=== PATIENT | female | born 1965 | race African-American/Black ===

== ENCOUNTER 2017-04-11 02:39 | Inpatient (IN) ==
[2017-04-11 03:18] LABS: Basophils % 0.4 % (0.0-0.8); Eosinophils # 0.1 10*3/uL (0.0-0.87); Eosinophils % 0.5 % (0.00-10.9); Hematocrit 42.8 VOL% (35.7-47.0); Hemoglobin 14.7 GM/DL (12.0-16.0); Immature Granulocytes % 0.6 %; Immature Granulocytes Absolute 0.06 #; Lymphocytes # 3.1 10*3/uL (1.4-4.0); Lymphocytes % 29.5 % (21.3-54.2); Mean Corpuscular HGB Conc 34.3 GM/DL (32-36); Mean Corpuscular Hemoglobin 28 PG (27-34); Mean Corpuscular Volume 80.9 FL (87-102); Mean Platelet Volume 10.6 FL (9.6-12.0); Monocytes # 0.9 10*3/uL (0.11-0.8); Monocytes % 8.7 % (1.7-12.7); Neutrophils # 6.3 10*3/uL (1.4-7.4); Neutrophils % 60.3 % (38.7-73.9); Platelet Count 207 T/CUMM (130-400); Red Blood Count 5.29 MC/CUMM (3.8-5.5); Red Cell Distribution Width 13.7 % (9.3-17.3); White Blood Count 10.4 T/CUMM (4-12)
[2017-04-11] MEDS ORDERED: LACTATED RINGERS 1,000 ML IV ONE (03:18)
[2017-04-11] MEDS ORDERED: HYDROmorphone 2 MG/1 ML VIAL IV STA (03:18)
[2017-04-11] MEDS ORDERED: PANTOPRAZOLE 40 MG VIAL IV ONE ×2 (03:18→03:38)
[2017-04-11] MEDS ORDERED: HYDROmorphone 2 MG/1 ML VIAL ONE (03:38)
[2017-04-11] MEDS ORDERED: SUCRALFATE 1 GM/10 ML UDCUP PO ONE (03:42)
[2017-04-11 03:48] LABS: Albumin 4.1 G/DL (3.4-5.0); Bilirubin,Total 0.4 MG/DL (0.2-1.0); Calcium 9.8 MG/DL (8.5-10.1); Osmolality,Calculated 276.5 MOS/KG (273-304); Potassium 3.6 MMOL/L (3.5-5.1); Total Protein 7.9 G/DL (6.4-8.3)
[2017-04-11 03:54] LABS: PT Patient Result 10.2 SECS; Partial Thromboplastin Time < 21.0 SECS (0-40)
[2017-04-11] MEDS ORDERED: CIPROFLOXACIN INJ 400 MG in PREMIX 1 EACH IV STA (04:07)
[2017-04-11] MEDS ORDERED: metroNIDAZOLE INJ 500 MG in PREMIX 1 EACH IV STA (04:07)
--- NOTE | 2017-04-11 04:09 | Emergency Department Note ---
John Paul Cavazos Brittany, am scribing for, and in the presence of, Mariano Ortez MD 03 :04. Neelima Cavazos Hans, MD, personally performed the services described in this documentation, ascribed by Jennifer Coker in my presence, and it is both accurate and complete . Arrival - Arrival Chief Complaint: Abdominal / Flank Pain Stated Complaint: abd pain ED Nursing Triage Note: abdominal tenderness left side, nausea, vomitting Mode of Arrival: Stretcher Limitations: No Limitations Source: Patient, RN Notes Reviewed - History of Present Illness HPI Narrative: Patient is a 51 y/o female presenting to the ED by EMS with c/o left sided abdominal pain which onset tonight. Patient states that she was wakened out of her sleep with this pain. Patient notes having associated N/V, but denies any dysuria or hematuria. She reports a history of similar episode about a year ago which required hospitalization and was determined that she had a gastric ulcer. Denies any recent use of NSAIDS. She has had a hysterectomy. Current everyday cigarette smoker and occasional user of EtOH. Patient has no other complaint/ pain. Allergies/Adverse Reactions: Allergies Allergy/AdvReac Type Severity Reaction Status Date / Time No Known Allergies Allergy Verified 02/22/17 21:12 Home Medications: Home Medications Medication Instructions Recorded Confirmed Type Atenolol [Tenormin] 50 mg PO BID #60 tablet 04/02/16 02/22/17 Rx Ranitidine Tab [Zantac Tab] 150 mg PO BID #30 tablet 04/04/16 02/22/17 Rx Polyethylene Glycol Powder 17 gm PO DAILY #12 pack 02/22/17 Rx [Miralax] Tizanidine HCl [Zanaflex] 2 mg PO Q6H #40 capsule 02/22/17 Rx predniSONE TAB [PredniSONE] 20 mg PO DAILY #15 tablet 02/22/17 Rx Review of System - Review of System 12 point system: reviewed and no additional remarkable complaints except as stated - Review of System Constitutional: Absent: chills, fever Eyes: Absent: vision change Head/Ears/Nose/Throat: Absent: nasal drainage, sore throat Respiratory: Absent: respiratory distress Cardiovascular: Absent: chest pain Gastrointestinal: Present: abdominal pain, nausea, vomiting Genitourinary female: Absent: dysuria, frequency, urgency Musculoskeletal: Absent: arm pain, back pain, leg pain, neck pain Skin: Absent: rash Neurological: Absent: headache Psychiatric: Absent: anxiety, depression Medical,Surgical,& Family Hx - Medical History Cardio: History of: Hypertension Neurology: No history of: Seizures Gastrointestinal: History of: GERD, GI Problems (ulcers) Musculoskeletal: History of: Back/Neck Problems - Surgical History Reproductive Surgeries: Surgical HX of;: Hysterectomy - Family History Family History: Reports;: Family Heart Disease - Social History Smoking Status: Current every day smoker Frequency of Alcohol Use: Frequently Type of Drug Use: Marijuana Exam Vital Signs: Vital Signs Temperature 97.9 F 04/11/17 02:40 Pulse Rate 110 H 04/11/17 02:40 Respiratory Rate 18 04/11/17 02:40 Blood Pressure 135/98 04/11/17 02:40 O2 Sat by Pulse Oximetry 99 04/11/17 03:54 - General General appearance: alert, in distress (appears uncomfortable secondary to pain , in position) - Head Head exam: Present: atraumatic, normocephalic, normal inspection - Eye Eye exam: Present: normal appearance, PERRL, EOMI - ENT ENT exam: Present: normal exam, normal oropharynx - Neck Neck exam: Present: normal inspection, full ROM, trachea midline - Chest Chest inspection: Present: normal inspection, symmetric chest wall rise - Respiratory Respiratory exam: Present: normal lung sounds bilaterally - Cardiovascular Cardiovascular exam: Present: regular rate, normal rhythm, normal heart sounds - Abdominal Exam Abdominal exam: Present: soft, tenderness (diffuse abdominal tenderness), hypoactive bowel sounds. Absent: guarding, rebound, normal bowel sounds - Extremities Exam Extremities exam: Present: normal inspection - Back Exam Back exam: Present: normal inspection - Neurological Exam Neurological exam: Present: alert, oriented X3, CN II-XII intact. Absent: motor sensory deficit - Psychiatric Psychiatric exam: Present: normal affect, normal mood - Skin Skin exam: Present: warm, dry Course Course Narrative: This patient was evaluated in the ER with lab work and CT scan of the abdomen and pelvis. She had evidence of thickening in the antrum of her stomach and has a known history of peptic ulcer disease. She also has pancolitis to her sigmoid colon from the transverse colon. She is not having diarrhea but because of her history of peptic ulcer disease and also her findings of colitis and thickening of the stomach as well as the degree of her abdominal pain I have recommended inpatient treatment with IV Protonix and antibiotics for colitis until this can be further evaluated. I discussed this with the hospitalist on-call who agreed to come and see her for admission. Results - Labs CBC & BMP: 04/11/17 03:04 04/11/17 03:04 Lab Results: I have reviewed the patients labs Labs: Laboratory Tests 04/11/17 03:04 WBC 10.4 RBC 5.29 Hgb 14.7 Hct 42.8 MCV 80.9 L Plt Count 207 [place] # (Auto) 0.9 H Laboratory Tests 04/11/17 04/11/17 03:04 03:31 INR 1.0 PT Patient/Control Mix 10.2 Circ Anticoag PTT < 21.0 Sodium 139 Potassium 3.6 Chloride 100 Carbon Dioxide 28 BUN 13 Creatinine 0.60 BUN/Creatinine Ratio 21.00 H Glucose 98 Globulin 3.8 H Albumin/Globulin Ratio 1.0 L Disposition Clinical Impression: Colitis, Peptic ulcer disease Case discussed with: patient Disposition: Still a Patient Condition: Stable Time of Disposition: 04:09
[2017-04-11] MEDS ORDERED: CIPROFLOXACIN 400 MG/200 ML PREMIX IV ONE (04:15)
--- NOTE | 2017-04-11 05:10 | Hospitalist History & Physical ---
Assessment and Plan (1) Colitis Status: Acute Current Visit: Yes (2) Peptic ulcer disease Status: Acute Current Visit: Yes (3) Abdominal pain Status: Acute Current Visit: No (4) Tobacco abuse Status: Acute Assessment and plan: Our plan for this patient will be admitting her to our service. Need to follow up on the official CT scan report. Will consult GI for their evaluation. Put her on IV antibiotics. Start on clear liquid diet and advance her diet is needed. Continue home meds as appropriate. Current Visit: No History of Present Illness Chief complaint: Abdominal pain History of present illness: Ms. Vargas is a 51 year old female with history of peptic ulcer disease and hypertension who is in normal state of health until tonight. Patient woke up at 1 AM with some significant abdominal pain. Patient reports that his only left lower quadrant and seems to wrap around her lower abdomen. It was really sharp. She has not had any bowel movements with this pain but she has had some significant vomiting. Patient had a CT scan performed in the emergency room patient was found to have some bowel wall thickening consistent with colitis. I was consulted to admit her through the emergency room. Home Medications Medication Instructions Recorded Confirmed Type Atenolol [Tenormin] 50 mg PO BID #60 tablet 04/02/16 02/22/17 Rx Ranitidine Tab [Zantac Tab] 150 mg PO BID #30 tablet 04/04/16 02/22/17 Rx Polyethylene Glycol Powder 17 gm PO DAILY #12 pack 02/22/17 Rx [Miralax] Tizanidine HCl [Zanaflex] 2 mg PO Q6H #40 capsule 02/22/17 Rx predniSONE TAB [PredniSONE] 20 mg PO DAILY #15 tablet 02/22/17 Rx Allergies Allergy/AdvReac Type Severity Reaction Status Date / Time No Known Allergies Allergy Verified 02/22/17 21:12 Medical,Surgical,& Family Hx - Medical History Cardio: History of: Hypertension Neurology: No history of: Seizures Gastrointestinal: History of: GERD, GI Problems (ulcers) Musculoskeletal: History of: Back/Neck Problems - Surgical History Reproductive Surgeries: Surgical HX of;: Hysterectomy - Family History Family History: Reports;: Family Heart Disease - Social History Smoking Status: Current every day smoker Frequency of Alcohol Use: Frequently Type of Drug Use: Marijuana 12 point system: reviewed and no additional remarkable complaints except as stated Exam - Constitutional Vitals: Period Temp Pulse Resp BP Sys/Arambula Pulse Ox Last 24 Hr 97.8 F-97.9 F 109-110 16-18 135-135/98-98 97-99 General appearance: under weight - Head Head exam: Present: normal inspection - Eye Eye exam: Present: EOMI Pupils: Present: BARBARA - ENT ENT exam: Present: normal exam - Neck Neck exam: Present: normal inspection - Respiratory Respiratory exam: Present: clear to auscultation bilaterally - Cardiovascular Cardiovascular exam: Present: tachycardia - GI/Abdominal GI/Abdominal exam: Present: hypoactive bowel sounds, tenderness (Left lower quadrant). Absent: rebound - Extremities Exam Extremities exam: Present: normal inspection - Back Exam Back exam: Present: normal inspection Results - Labs CBC & BMP: 04/11/17 03:04 04/11/17 03:04
[2017-04-11] MEDS ORDERED: PNEUMOCOCCAL VACCINE (13 VALENT) 0.5 ML SYRINGE IM ONE (06:24)
[2017-04-11 06:39] LABS: Apearance,Urine CLEAR (Clear); Bacteria,Urine Occasional /HPF (Few); Bilirubin,Urine Negative (Negative); Blood, Urine Negative (Negative); Glucose,Urine (UA) Negative (Negative); Ketones,Urine Negative (Negative); Mucus,Urine Occasional /LPF (Occasional); Nitrite,Urine Negative (Negative); Protein,Urine Negative; RBC,Urine 1 /HPF (0-4); Squamous Epithelial Cell,Urine Occasional /HPF (0-10); Urine Color Yellow (Yellow); Urine Specific Gravity 1.032 (1.001-1.035); Urine Urobilinogen < 2.0 EU/DL (0.2-1.0); WBC,Urine 2 /HPF (0-6)
[2017-04-11 06:49] LABS: Barbiturates Screen,Urine Positive (Negative); Benzodiazepines Screen,Urine Negative (Negative); Cannabinoid Screen,Urine Positive (Negative); Opiate Screen,Urine Positive (Negative); Phencyclidine Screen,Urine Negative (Negative)
--- NOTE | 2017-04-11 07:08 | CT Report ---
CT abdomen pelvis w con Indication: Generalized abdominal pain Comparison: CT chest abdomen pelvis dated March 31, 2016 Technique: Multiple axial tomographic images of the abdomen and pelvis were obtained after the administration of 100 cc Omnipaque 350 intravenous contrast. Findings: Mild dependent change of the lungs present. No worrisome focal hepatic abnormality. The gallbladder is grossly unremarkable. The pancreas is grossly unremarkable. The spleen is grossly unremarkable. The bilateral adrenal glands are grossly unremarkable. Subcentimeter hypodensity noted within the right kidney which is too small to characterize but may reflect a cyst. No evidence of hydronephrosis. The urinary bladder is incompletely distended. Status post hysterectomy. There is no evidence of gastrointestinal obstruction or acute appendicitis. Appendix not visualized with certainty. Colonic diverticula are present. Moderate fecal material noted throughout the colon which could reflect constipation. There is wall thickening involving the transverse, descending, and upper sigmoid colon suspicious for colitis. There is wall thickening of the distal stomach suggested which may reflect gastritis or incomplete distention. Mild atherosclerotic calcifications demonstrated. Visualized osseous and surrounding soft tissue structures appear grossly unchanged. There is some hyperdensity noted within the bilateral femoral heads suspicious for sequela of osteonecrosis. IMPRESSION: Colonic diverticula are present. Moderate fecal material noted throughout the colon which could reflect constipation. There is wall thickening involving the transverse, descending, and upper sigmoid colon suspicious for colitis. There is wall thickening of the distal stomach suggested which may reflect gastritis or incomplete distention. Status post hysterectomy and other detailed findings as above. The CT exam was performed using one or more of the following dose reduction techniques: Automated exposure control, adjustment of the mA and/or kV according to patient size, or use of iterative reconstruction technique. PROCEDURE INTERPRETED AT [facility] DEPARTMENT OF RADIOLOGY Final Report Signed by: Dr Alban Coronado
[2017-04-11] MEDS: HYDROmorphone 2 MG/1 ML VIAL IV PRN ×4 (08:24→20:31)
[2017-04-11] MEDS: ONDANSETRON 4 MG/2 ML VIAL IV PRN ×4 (08:25→22:19)
[2017-04-11] MEDS: PANTOPRAZOLE 40 MG VIAL IV SCH ×2 (08:26→20:33)
[2017-04-11] MEDS: ATENOLOL 50 MG TABLET PO SCH ×2 (08:26→21:45)
[2017-04-11] MEDS ORDERED: LACTULOSE 20 GM/30 ML UDCUP PO PRN (08:42)
[2017-04-11] MEDS ORDERED: DOCUSATE SODIUM 100 MG CAPSULE PO PRN (08:43)
[2017-04-11] MEDS: NICOTINE 21 MG/24 HR PATCH TRANSDERM SCH (11:28)
[2017-04-11] MEDS: metroNIDAZOLE INJ 500 MG in PREMIX 1 EACH IV SCH ×2 (13:45→20:31)
[2017-04-11] MEDS: CIPROFLOXACIN INJ 400 MG in PREMIX 1 EACH IV SCH (17:50)
--- NOTE | 2017-04-11 19:24 | Gastrointestinal Consult Note ---
Assessment and Plan (1) Generalized abdominal pain Status: Acute Assessment and plan: Patient is CT scan that she seems to show some sort of colitis. She had previously undergone colonoscopy by Dr. Ledesma back in 2010 but now has some blood in her stool. Her hematocrit is 42.8% and she states that she is off of her Naprosyn now. She may certainly has some stress-induced gastritis that is making her stools guaiac positive. There may be another process going on the colon that is new since previous colonoscopy done by Dr. Ledesma in 2010. The CT scan demonstrates a colitis but not true diverticulitis which would be more localized and associated with a higher white count, I believe. She has been started on Cipro and Flagyl, we will continue to watch her on these medications particularly her white count over time and see if her pain and proves in tandem with lowering of this white blood cell count. Patient is not using any cocaine and some not particularly concerned about ischemic colitis. This is likely an infectious colitis or perhaps rectal bleeding associated with her constipation which she does have a baseline. Good to stop the laxatives and go ahead and put her on some MiraLAX 1 capful 3 times daily which should improve her bowel movements along with her clear liquid diet. Current Visit: Yes (2) Abnormal CT scan Status: Acute Assessment and plan: This refers to the colitis seen on CT scanning. We will continue to watch the patient's white blood cell count is her antibiotics treat a potential infection. Current Visit: Yes (3) History of gastric ulcer Status: Acute Assessment and plan: This patient does have a history of esophagitis gastritis and duodenitis with the gastritis also notable for gastric ulcers due to Naprosyn use previously. She is discontinue the Naprosyn but is taking Lortab on a routine basis and is also on a H2 RA instead of a proton pump inhibitor (ranitidine instead of Protonix). Agree with placing her Protonix while she is here in the hospital. We will try and avoid NSAIDs while in the house. Again the patient has a stable hematocrit at this time. Current Visit: Yes (4) Polypharmacy Status: Acute Assessment and plan: Patient's urine drug screen shows not just the opiates as one might expect from Lortab but also barbiturates alcohol and cannabis. 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 Is hard to tell how much of her constipation with one bowel movement every 2 weeks is secondary to chronic narcotic use. Current Visit: Yes History of Present Illness Chief complaint: LLQ pain > generalized abdominal pain, possible colitis History of present illness: Ms. Vargas is a 51 year old female who is well-known to me from her previous admission in March 2016 when the patient had epigastric pain dysphasia and abnormal weight loss and was taking Naprosyn and developed a set of gastric ulcers as well as having LA class a erosive esophagitis and erosive duodenitis treated with pantoprazole. Patient states that since that time she has discontinued Naprosyn and has come off the Protonix given to her to help heal these ulcers and is instead taking ranitidine possibly as a result of seeing her primary doctor Dr. Veronica Vega. She is been having some issues with constipation but does take some Lortab on a routine basis. She states that this morning about 1 AM she was struck with a very severe abdominal pain which was very cramping and elected to go to the bathroom where she had a near syncopal episode due to the pain. She states that she does drink a can of beer per day this helps her to "use it" she does not know whether or not she has passed any recent black stools as she does not look at the stools when she defecates. I do not see that she has had any recent colonoscopies done at this institution however mild records indicate the patient had both EGD and colonoscopy by Dr. Ledesma back in 2010. There is no family history of colorectal cancer polyps the patient knows of. Her current urine drug screen demonstrates positivity for opiates, barbiturates, cannabis, as well as having serum alcohol level 30. The patient has one bowel movement every 2 weeks at times forcing her to take enemas on occasional basis. Please see my previous consultation from 03/31/16 for full details. Home Medications Medication Instructions Recorded Confirmed Type Atenolol [Tenormin] 50 mg PO BID #60 tablet 04/02/16 04/11/17 Rx Ranitidine Tab [Zantac Tab] 150 mg PO BID #30 tablet 04/04/16 04/11/17 Rx Allergies Allergy/AdvReac Type Severity Reaction Status Date / Time No Known Allergies Allergy Verified 02/22/17 21:12 Medical,Surgical,& Family Hx - Medical History Cardio: History of: Hypertension Neurology: No history of: Seizures Genitourinary: History of: Kidney Stones Gastrointestinal: History of: GERD, Hemorrhoids, GI Problems (ulcers) Musculoskeletal: History of: Back/Neck Problems - Surgical History Thoracic Surgeries: Surgical HX of;: Lithotripsy Patient denies;: Organ Transplant Abdominal Surgeries: Surgical HX of: Colonoscopy, EGD, Hernia Repair Reproductive Surgeries: Surgical HX of;: Hysterectomy - Family History Family History: Reports;: Family Heart Disease, Family Hypertension, Additional Family History (lupus) - Social History Smoking Status: Current every day smoker Frequency of Alcohol Use: Frequently Type of Drug Use: Marijuana Review of systems: Constitutional: Denies fever, chills, mild nausea, but no vomiting Eyes: Denies dry eyes, and scleral icterus HENT: Denies headaches Cardiovascular: Denies acute chest pain and claudication Respiratory: Denies shortness of breath, wheezing, and difficulty breathing, denies cough Gastrointestinal: As noted in the HPI Genitourinary: Patient does have some mild dysuria and occasional hematuria Neurologic: Denies vision loss, and loss of sensation Musculoskeletal: Denies joint swelling, joint stiffness, and muscular weakness Psychiatric: This patient does complain of anxiety, depression but no annika symptoms Heme-Lymph: Denies easy bruising, lymph node enlargement or tenderness, night sweats, excessive bleeding Allergies-immunologic: Denies pruritus and rhinorrhea Exam - Constitutional Vitals: Period Temp Pulse Resp BP Sys/Arambula Pulse Ox Last 24 Hr 97.2 F-98.2 F 71-111 16-20 116-172/75-110 96-100 Exam: Constitutional: Well-developed, well-nourished, alert, and in no acute distress Head and face: Head: Normocephalic atraumatic Eyes: Conjunctiva without injection, no gross scleral icterus, pupils equal and round bilaterally Ears: Intact to conversation in both ears Nose: External appearance is normal, nares patent Mouth: Oral mucous membranes moist without erythema dentition noted to be without erosion Neck: Normal appearance, no masses or tenderness, trachea midline Thyroid: Gland midline and appropriate size for age Respiratory: Normal respiratory effort, clear to auscultation without wheezes, rhonchi or rales Cardiovascular: Regular rate and rhythm, normal S1, S2, the exam is without rubs, murmurs or gallops. Gastrointestinal: Moderate tenderness to palpation everywhere but this seems worse in the left lower abdomen normal active bowel sounds, tone normal without rigidity or guarding, no masses present, no hepatomegaly, no spleen tip felt. Stool is brown but grossly guaiac positive. Lymphatic: Neck without adenopathy, axilla without lymphadenopathy present Musculoskeletal: Right and left lower extremities without evidence of edema Skin and subcutaneous tissue: No rashes or ulcerations noted, normal skin turgor, digits and nails without clubbing/cyanosis/deformities. Neurologic: The patient is grossly oriented to person place and time, cranial nerves show tongue movements are normal with normal tongue extrusion midline, light touch sensation is intact. Psychiatric: No hallucinations or delusions are present, does not appear depressed Results - Labs CBC & BMP: 04/11/17 03:04 04/11/17 03:04 Quality Measures - Stroke Symptom Onset Unknown: No
[2017-04-11] MEDS: POLYETHYLENE GLYCOL POWDER 17 GM PACK PO SCH (20:31)
[2017-04-11] MEDS ORDERED: DOCUSATE SODIUM 100 MG CAPSULE PO SCH (21:00)
[2017-04-11] MEDS ORDERED: LACTULOSE 20 GM/30 ML UDCUP PO SCH (21:00)
[2017-04-12] MEDS: HYDROmorphone 2 MG/1 ML VIAL IV PRN ×4 (02:48→20:41)
[2017-04-12 05:03] LABS: Basophils % 0.3 % (0.0-0.8); Eosinophils % 0.3 % (0.00-10.9); Hematocrit 35.7 VOL% (35.7-47.0); Immature Granulocytes % 0.6 %; Immature Granulocytes Absolute 0.04 #; Lymphocytes # 2.2 10*3/uL (1.4-4.0); Lymphocytes % 33.7 % (21.3-54.2); Mean Corpuscular HGB Conc 33.6 GM/DL (32-36); Mean Corpuscular Hemoglobin 28 PG (27-34); Mean Corpuscular Volume 82.8 FL (87-102); Mean Platelet Volume 11.8 FL (9.6-12.0); Monocytes # 0.9 10*3/uL (0.11-0.8); Monocytes % 13.4 % (1.7-12.7); Neutrophils # 3.3 10*3/uL (1.4-7.4); Neutrophils % 51.7 % (38.7-73.9); Platelet Count 190 T/CUMM (130-400); Red Blood Count 4.31 MC/CUMM (3.8-5.5); Red Cell Distribution Width 13.6 % (9.3-17.3); White Blood Count 6.4 T/CUMM (4-12)
[2017-04-12 05:21] LABS: Calcium 9.1 MG/DL (8.5-10.1); Osmolality,Calculated 274.5 MOS/KG (273-304)
[2017-04-12] MEDS: metroNIDAZOLE INJ 500 MG in PREMIX 1 EACH IV SCH ×3 (05:40→20:18)
[2017-04-12] MEDS: CIPROFLOXACIN INJ 400 MG in PREMIX 1 EACH IV SCH ×2 (06:24→17:29)
[2017-04-12] MEDS: NICOTINE 21 MG/24 HR PATCH TRANSDERM SCH (08:36)
[2017-04-12] MEDS: POLYETHYLENE GLYCOL POWDER 17 GM PACK PO SCH ×3 (08:36→20:21)
[2017-04-12] MEDS: ATENOLOL 50 MG TABLET PO SCH ×2 (08:36→20:21)
[2017-04-12] MEDS: ONDANSETRON 4 MG/2 ML VIAL IV PRN ×2 (08:42→20:22)
[2017-04-12] MEDS: PANTOPRAZOLE 40 MG VIAL IV SCH ×2 (08:45→20:20)
[2017-04-12] MEDS ORDERED: ONDANSETRON 4 MG/2 ML VIAL ONE (09:00)
[2017-04-12] MEDS ORDERED: PROPOFOL 200 MG/20 ML VIAL IV ONE (09:00)
--- NOTE | 2017-04-12 12:15 | Hospitalist Progress Note ---
Assessment and Plan (1) Generalized abdominal pain Status: Acute Assessment and plan: CT scan demonstrates a colitis but not true diverticulitis. Plan continue with IVF, IV Flagyl and Cipro Current Visit: Yes (2) Colitis Status: Acute Assessment and plan: Continue with IV antibiotics, follow BC Current Visit: Yes (3) History of gastric ulcer Status: Acute Assessment and plan: Continue with PPIs and GI's recommendations Current Visit: Yes (4) Hypertension Status: Acute Assessment and plan: stable on meds Current Visit: No (5) Polypharmacy Status: Acute Assessment and plan: patient has been counseled Current Visit: Yes (6) Constipation Status: Acute Assessment and plan: Patient is on Miralax Current Visit: Yes Hospitalist: Subjective Interval history: Patient seen. She moved her bowel yesterday. Her diet has been advanced. She feels better. Exam - Constitutional Vitals: Period Temp Pulse Resp BP Sys/Arambula Pulse Ox Last 24 Hr 96.0 F-98.2 F 71-94 18-22 114-133/63-84 96-98 General appearance: no acute distress - Head Head exam: Present: normal inspection - Respiratory Respiratory exam: Present: clear to auscultation bilaterally - Cardiovascular Cardiovascular exam: Present: regular rate and rhythm - GI/Abdominal GI/Abdominal exam: Present: normal bowel sounds - Extremities Exam Extremities exam: Present: normal inspection - Neurological Exam Neurological exam: Present: alert, oriented X3 Results - Labs CBC & BMP: 04/12/17 03:46 04/12/17 03:46 Lab Results: I have reviewed the past 24 hour labs Quality Measures - Stroke Symptom Onset Unknown: No
--- NOTE | 2017-04-12 15:35 | Gastrointestinal Progress Note ---
Assessment and Plan (1) Generalized abdominal pain Status: Acute Assessment and plan: Patient is CT scan that she seems to show some sort of colitis. She had previously undergone colonoscopy by Dr. Ledesma back in 2010 but now has some blood in her stool. Her hematocrit is 42.8% and she states that she is off of her Naprosyn now. She may certainly has some stress-induced gastritis that is making her stools guaiac positive. There may be another process going on the colon that is new since previous colonoscopy done by Dr. Ledesma in 2010. The CT scan demonstrates a colitis but not true diverticulitis which would be more localized and associated with a higher white count, I believe. She has been started on Cipro and Flagyl, we will continue to watch her on these medications particularly her white count over time and see if her pain and proves in tandem with lowering of this white blood cell count. Patient is not using any cocaine and some not particularly concerned about ischemic colitis. This is likely an infectious colitis or perhaps rectal bleeding associated with her constipation which she does have a baseline. Good to stop the laxatives and go ahead and put her on some MiraLAX 1 capful 3 times daily which should improve her bowel movements along with her clear liquid diet. 04/12/17--patient's primary refractory worker Dr. Ledesma mentions that he thinks this patient has got severe constipation related IBS but CT scan here seems to show colitis, will plan on doing colonoscopy again in order to check and see if there is an infectious process and to completely rule out malignancy. The patient will be getting a urologic prep as well as additional magnesium citrate if she requires this. Colonoscopy to follow tomorrow. Patient is being left on clear liquids to facilitate the colonic purging. Current Visit: Yes (2) Abnormal CT scan Status: Acute Assessment and plan: This refers to the colitis seen on CT scanning. We will continue to watch the patient's white blood cell count is her antibiotics treat a potential infection. 04/12/17--agree with current antibiotic regimen Current Visit: Yes (3) History of gastric ulcer Status: Acute Assessment and plan: This patient does have a history of esophagitis gastritis and duodenitis with the gastritis also notable for gastric ulcers due to Naprosyn use previously. She is discontinue the Naprosyn but is taking Lortab on a routine basis and is also on a H2 RA instead of a proton pump inhibitor (ranitidine instead of Protonix). Agree with placing her Protonix while she is here in the hospital. We will try and avoid NSAIDs while in the house. Again the patient has a stable hematocrit at this time. 04/12/17--review of the patient's last upper endoscopy this was actually essentially normal with a dilation done [address] [place] back when she was last scoped in 2011. We will hold off on repeating upper endoscopy for the present time.. This is somewhat different from the story given by the patient yesterday. Current Visit: Yes (4) Polypharmacy Status: Acute Assessment and plan: Patient's urine drug screen shows not just the opiates as one might expect from Lortab but also barbiturates alcohol and cannabis. 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 Is hard to tell how much of her constipation with one bowel movement every 2 weeks is secondary to chronic narcotic use. 04/12/17. The patient feels current laxative regimen mentioned above she may be a good candidate for Movantik. Current Visit: Yes Gastroenterology - PN: Subj Interval history: I queried the [facility] and cannot find a prior colonoscopy report from their system. Patient is still having fairly severe abdominal pain which may or may not be related to constipation. CT scan findings seem to show evidence of colitis, her hematocrit remained stable. She states that the pain is very severe and she is requiring great deal Dilaudid. White count is in the normal range at 6.4. Exam (Progress Note) - Constitutional Vitals: Period Temp Pulse Resp BP Sys/Arambula Pulse Ox Last 24 Hr 96.0 F-98.2 F 71-94 18-22 114-133/63-84 96-98 General appearance: no acute distress - Head Head exam: Present: normocephalic - Eye Eye exam: Present: EOMI Pupils: Present: BARBARA - Respiratory Respiratory exam: Present: clear to auscultation bilaterally. Absent: rhonchi, stridor, wheezes - Cardiovascular Cardiovascular exam: Present: regular rate and rhythm - GI/Abdominal GI/Abdominal exam: Present: normal bowel sounds, tenderness (Diffuse, fairly severe), soft. Absent: guarding - Extremities Exam Extremities exam: Absent: edema - Neurological Exam Neurological exam: Present: alert, oriented X3 - Psychiatric Psychiatric exam: Present: normal affect, normal mood - Skin Skin exam: Present: warm Results - Labs CBC & BMP: 04/12/17 03:46 04/12/17 03:46
[2017-04-12] MEDS ORDERED: POLYETHYLENE GLYCOL 3350/ELECTROLYTES 4,000 ML BOTTLE PEG ONE (16:00)
[2017-04-12] MEDS ORDERED: POLYETHYLENE GLYCOL POWDER 255 GM BOTTLE PO ONE (17:25)
[2017-04-12] MEDS: BISACODYL 5 MG TABLET PO SCH ×2 (17:28→23:02)
[2017-04-12] MEDS ORDERED: MAGNESIUM CITRATE 300 ML BOTTLE PO ONE (21:00)
[2017-04-13] MEDS: ONDANSETRON 4 MG/2 ML VIAL IV PRN ×2 (00:38→08:38)
[2017-04-13] MEDS: HYDROmorphone 2 MG/1 ML VIAL IV PRN ×3 (00:38→11:40)
[2017-04-13] MEDS: metroNIDAZOLE INJ 500 MG in PREMIX 1 EACH IV SCH ×2 (04:10→12:13)
[2017-04-13] MEDS: CIPROFLOXACIN INJ 400 MG in PREMIX 1 EACH IV SCH (06:06)
[2017-04-13] MEDS: BISACODYL 5 MG TABLET PO SCH (06:33)
--- NOTE | 2017-04-13 07:37 | Operative Note ---
Date of procedure: 04/13/17 Pre-op diagnosis: Hematocrit 35.7, abnormal CT scan with colon thickening, abd pain Post-op diagnosis: other (Ischemic-appearing colitis in the descending and sigmoid regions of the colon--this can be related to the patient's smoking but does not appear that she has been on any cocaine or control pills. She might require a hypercoagulable-state workup if this occurs again. If patient is not already taking this than starting an aspirin a day 2 weeks from now would be advisable. Polyps also noted in the ascending, sigmoid and rectum. Mild left-sided diverticulosis and small internal hemorrhoids noted incidentally.) Procedure: PROCEDURE: Colonoscopy with cold biopsy for pathology REFERRING PHYSICIAN: Mercedes Martinez MD INDICATIONS: This is a patient with generalized abdominal pain, history of constipation, mild anemia with hematocrit of 35% the prior H&P was reviewed and interrim changes are as noted: No change from GI consultation earlier this admission ENDOSCOPIST: Gallo Bobby MD ENDOSCOPE: [employer] Video 100 System colonoscope COLON PREPARATION: 238 gm of PEG containing laxative and 1.9 liters of gatoraid/sports drink and dulcolax 15 mg q8 hours x 3 ASA CLASS: 3 EXAM: CV: regular rate and rhythm Respiratory: Clear without wheezes Abdominal: active bowel sounds Rectal: Good tone, no fissures or fistulas MEDICATION: Per nursing anesthesia protocol, see their notes PROCEDURE: After discussion of the potential risks and benefits of colonoscopy, the informed consent was obtained, from patient or health care surrogate. The patient was then placed in the left lateral decubitus position where sedation was achieved as noted above. Rectal examination was followed by insertion of the colonoscope. The colonoscope was passed under direct visualization to the cecum. Advancement was facilitated by insertion/withdrawl techniques, abdominal pressure and patient positioning. Once the cecal pole was reached, slow withdrawal was performed with the findings as noted below. The patient tolerated the procedure well and without complication. QUALITY OF PREP: Excellent WITHDRAWL TIME: 8 minutes 3 seconds BIOPSIES: Proximal ascending polyp, colitis biopsies in the descending/ sigmoid/sigmoid polyp, rectal polyps PHOTOGRAPHS: Obtained FINDINGS: The musoca appeared normal in the following regions: splenic flexure , transverse colon, hepatic flexure, and cecum. Position within the cecum was confirmed by ileocecal valve, appendiceal oriface, and the convergence of folds (crows foot). No mass or AVM was noted throughout the colon. Mild left-sided diverticulosis noted. The patient had a segment of ischemic appearing colitis with multiple erosions on the fold tips but no areas of confluence that started at 38 and ended at 18 cm (descending and sigmoid regions). Single polyp was noted in the proximal ascending colon near the ileocecal valve 7 mm in size removed by hot biopsy, another sigmoid polyp was noted 6 mm removed by hot biopsy and for more polyps were small ranging in size between 5 and 6 mm removed by hot biopsy in the rectum. The rectal polyps appeared hyperplastic. Small internal hemorrhoids noted on retroflex. Intubation of the TI was achieved x 5 cm with normal appearence--there was no evidence of Crohn's here. IMPRESSION: Ischemic-appearing colitis in the descending and sigmoid regions of the colon--this can be related to the patient's smoking but does not appear that she has been on any cocaine or control pills. She might require a hypercoagulable-state workup if this occurs again. If patient is not already taking this than starting an aspirin a day 2 weeks from now would be advisable. Polyps also noted in the ascending, sigmoid and rectum. Mild left-sided diverticulosis and small internal hemorrhoids noted incidentally. RECOMMENDATIONS: High fiber diet Repeat colonosocopy will be in 3 years for greater than 3 adenomas, 5 years for 1-3 adenomas, or 10 years for hyperplastic polyps (only) or if no polyps discovered. With this patient's chronic constipation would strongly suggest use of MiraLAX 1 capful twice to 3 times daily to control constipation. Follow up by phone for biopsy results in 1-2 weeks by phone Gallo Bobby MD COPY TO: Mercedes Martinez MD Anesthesia: MAC Surgeon / Physician: Gallo Bobby Estimated blood loss: minimal Specimens: other (Ascending polyp, routine biopsies; ischemic appearing colitis in the descending sigmoid, sigmoid polyp; rectal polyps) Condition: stable Disposition: post procedure unit ([facility]) Results - Labs CBC & BMP: 04/12/17 03:46 04/12/17 03:46 Discharge Plan - Discharge Medications No Action Atenolol [Tenormin] 50 mg PO BID #60 tablet Ranitidine Tab [Zantac Tab] 150 mg PO BID #30 tablet - Follow Up or Referral - Forms/Instructions
--- NOTE | 2017-04-13 07:40 | Anesthesia Post-Op ---
Anesthesia Post OP - Post Ansesthetic Evaluation Patient seen in post op: Yes Resp: within normal limits CV: within normal limits Mental: within normal limits Temp: within normal limits [id number]: within normal limits Nausea and Vomiting: within normal limits Pain: within normal limits
--- NOTE | 2017-04-13 07:41 | Gastrointestinal Progress Note ---
Assessment and Plan (1) Acute ischemic colitis Status: Acute Assessment and plan: Colonoscopy results are as follows: Ischemic-appearing colitis in the descending and sigmoid regions of the colon (18-38 cm)--this can be related to the patient's smoking but does not appear that she has been on any cocaine or control pills. She might require a hypercoagulable-state workup if this occurs again. If patient is not already taking this than starting an aspirin a day 2 weeks from now would be advisable. Polyps also noted in the ascending, sigmoid and rectum. Mild left-sided diverticulosis and small internal hemorrhoids noted incidentally. If she is eating well she can likely be discharged today or tomorrow as you see fit. She needs to discontinue smoking. Current Visit: Yes (2) Colon polyps Status: Acute Assessment and plan: Repeat colonoscopy will depend on the pathology of the polyps noted on today's exam, if these were hyperplastic she can still come back another 10 years but if adenomas family may need to have her to come back in 5 years for repeat colonoscopy. Current Visit: Yes (3) Generalized abdominal pain Status: Acute Assessment and plan: Patient is CT scan that she seems to show some sort of colitis. She had previously undergone colonoscopy by Dr. Ledesma back in 2010 but now has some blood in her stool. Her hematocrit is 42.8% and she states that she is off of her Naprosyn now. She may certainly has some stress-induced gastritis that is making her stools guaiac positive. There may be another process going on the colon that is new since previous colonoscopy done by Dr. Ledesma in 2010. The CT scan demonstrates a colitis but not true diverticulitis which would be more localized and associated with a higher white count, I believe. She has been started on Cipro and Flagyl, we will continue to watch her on these medications particularly her white count over time and see if her pain and proves in tandem with lowering of this white blood cell count. Patient is not using any cocaine and some not particularly concerned about ischemic colitis. This is likely an infectious colitis or perhaps rectal bleeding associated with her constipation which she does have a baseline. Good to stop the laxatives and go ahead and put her on some MiraLAX 1 capful 3 times daily which should improve her bowel movements along with her clear liquid diet. 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 Ledesma mentions that he thinks this patient has got severe constipation related IBS but CT scan here seems to show colitis, will plan on doing colonoscopy again in order to check and see if there is an infectious process and to completely rule out malignancy. The patient will be getting a urologic prep as well as additional magnesium citrate if she requires this. Colonoscopy to follow tomorrow. Patient is being left on clear liquids to facilitate the colonic purging. 04/13/17--the patient's ischemic colitis is healing nicely. I would leave her on Cipro and Flagyl to cover her for bacterial translocation probably for another 3 days and give her MiraLAX twice a day to keep her bowels from getting constipated. The colon will regenerate very quickly. She needs to discontinue smoking entirely. Current Visit: Yes (4) Abnormal CT scan Status: Acute Assessment and plan: This refers to the colitis seen on CT scanning. We will continue to watch the patient's white blood cell count is her antibiotics treat a potential infection. 04/12/17--agree with current antibiotic regimen 04/13/17--The patient had ischemic colitis by appearance on endoscopy. Pathology confirmation is pending. Current Visit: Yes (5) History of gastric ulcer Status: Acute Assessment and plan: This patient does have a history of esophagitis gastritis and duodenitis with the gastritis also notable for gastric ulcers due to Naprosyn use previously. She is discontinue the Naprosyn but is taking Lortab on a routine basis and is also on a H2 RA instead of a proton pump inhibitor (ranitidine instead of Protonix). Agree with placing her Protonix while she is here in the hospital. We will try and avoid NSAIDs while in the house. Again the patient has a stable hematocrit at this time. 04/12/17--review of the patient's last upper endoscopy this was actually essentially normal with a dilation done [address] [place] back when she was last scoped in 2011. We will hold off on repeating upper endoscopy for the present time.. This is somewhat different from the story given by the patient yesterday. 04/13/17--The patient needs to be on her Protonix but no further redilation is required as the patient is not having dysphagia now Current Visit: Yes (6) Polypharmacy Status: Acute Assessment and plan: Patient's urine drug screen shows not just the opiates as one might expect from Lortab but also barbiturates alcohol and cannabis. 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 Is hard to tell how much of her constipation with one bowel movement every 2 weeks is secondary to chronic narcotic use. 04/12/17. The patient feels current laxative regimen mentioned above she may be a good candidate for Movantik. 04/13/17--I doubt this patient would be able to afford Movantik as noted above. She should probably see if she can get relief with MiraLAX 1 capful twice daily. Discontinuation of smoking to prevent further episodes of ischemic colitis is strongly encouraged. Current Visit: Yes Gastroenterology - PN: Subj Interval history: The patient took her bowel prep well, she feels cleaned out. Pain is marginally better. Exam (Progress Note) - Constitutional Vitals: Period Temp Pulse Resp BP Sys/Arambula Pulse Ox Last 24 Hr 97 F-97.9 F 68-92 16-20 110-158/74-104 95-100 General appearance: mild distress - Eye Eye exam: Present: EOMI Pupils: Present: BARBARA - Respiratory Respiratory exam: Present: clear to auscultation bilaterally - Cardiovascular Cardiovascular exam: Present: regular rate and rhythm - GI/Abdominal GI/Abdominal exam: Present: normal bowel sounds, tenderness (Left upper and left lower abdomen tenderness to moderate palpation.), soft. Absent: distended , guarding, rebound - Neurological Exam Neurological exam: Present: alert, oriented X3, CN II-XII intact. Absent: motor sensory deficit - Psychiatric Psychiatric exam: Present: normal affect, normal mood - Skin Skin exam: Present: warm Results - Labs CBC & BMP: 04/12/17 03:46 04/12/17 03:46
[2017-04-13] MEDS: ATENOLOL 50 MG TABLET PO SCH (08:33)
[2017-04-13] MEDS: PANTOPRAZOLE 40 MG VIAL IV SCH (08:33)
[2017-04-13] MEDS: NICOTINE 21 MG/24 HR PATCH TRANSDERM SCH (08:33)
[2017-04-13] MEDS: POLYETHYLENE GLYCOL POWDER 17 GM PACK PO SCH (08:34)
--- NOTE | 2017-04-13 11:16 | Discharge Summary ---
<Sharon Neil - Last Filed: 04/13/17 11:00> Hospital Course - Hospital Course Hospital Course: Ms. Vargas is a 51 yr old female with a history of gerd, htn, peptic ulcer disease, and tobacco abuse that presented to the ED on 04/11 for evaluation of left sided abdominal pain. Pt. states that the pain woke her out of her sleep. She reported n/v but no other symptoms at the time. Pt. reported being an everyday smoker. CT scan in the ED revealed some bowel wall thickening indicating colitis. Pt. was admitted to the hospitalist service. Pt. was treated with IV antibiotics (Flagyl and Cipro), IV hydration was provided and GI was consulted to evaluate. Pt. underwent colonoscopy. Pt had ischemic colitis by appearance on endoscopy. It is GI's recommendation that patient start on asa 2 weeks from now. Polyps were also noted and pending pathology a future colonoscopy will be set. GI also recommends Cipro and Flagyl to cover her for bacterial translocation probably for another 3 days and give her MiraLAX twice a day to keep her bowels from getting constipated.Discontinuation of smoking to prevent further episodes of ischemic colitis is strongly encouraged.Pt. is stable for discharge. She will follow with PCP in 1week and GI as scheduled. Discharge Plan - Discharge Data Disposition: Disch To Home/Self Care - Discharge Medications New Ciprofloxacin Tab [Cipro Tab] 500 mg PO BID #7 tablet HYDROcodone/ACETAMIN 5-325 [[place] 5-325] 1 tablet PO Q4H #20 tablet Nicotine 21 mg/24 Hr Patch [Nicoderm CQ 21 mg/24 hr Patch] 1 patch TRANSDERM DAILY #7 patch Polyethylene Glycol Powder [Miralax] 17 gm PO TID #7 metroNIDAZOLE TAB [Flagyl Cap/Tab] 500 mg PO TID #10 tablet Pantoprazole Tab [Protonix Tab] 40 mg PO DAILY #30 tablet Continue Atenolol [Tenormin] 50 mg PO BID #60 tablet Discontinued Ranitidine Tab [Zantac Tab] 150 mg PO BID #30 tablet - Follow Up or Referral - Forms/Instructions Exam - Constitutional Vitals: Period Temp Pulse Resp BP Sys/Arambula Pulse Ox Last 24 Hr 97 F-97.7 F 67-85 15-22 106-158/74-104 95-100 Discharge Results Procedures and tests throughout hospitalization: Pending Orders 04/12/17 12:38 Blood Culture Routine Labs on day of discharge: Preliminary micro results at discharge 04/12/17 12:38 Blood Culture - Preliminary Blood No growth at 1 day 04/12/17 12:38 Blood Culture - Preliminary Blood No growth at 1 day DS: Provider Date of admission: 04/11/17 05:12 Primary care physician: . No PCP Attending physician on admission: Shady Leger MD Consults: 04/11/17 05:18 Consult to Physician [CONS] Routine Comment: seen last in 2015 Consulting Provider: Gallo Bobby Consult to Specialist Group: Gastroenterology When should Consulting Provider be notified: In am Person Notified: [email or web address] Date Notified: 04/11/17 Time Notified: 08:44 04/11/17 06:15 Consult to Dietitian [CONS] Routine Reason for Dietitian: Other Consult Comment: admission assessment Discharging clinician: Sharon Neil NP <Mercedes Martinez - Last Filed: 04/13/17 12:52> Hospital Course - Time spent with patient Time with patient DS: Greater than 30 minutes (Time greater than 35mins) Diagnosis - Discharge Diagnosis (1) Generalized abdominal pain Status: Acute (2) Colitis Status: Acute (3) History of gastric ulcer Status: Acute (4) Hypertension Status: Acute (5) Polypharmacy Status: Acute (6) Constipation Status: Acute (7) Acute ischemic colitis Status: Acute Discharge Plan - Discharge Data Condition at Discharge: Stable Discharge Diet: high fiber diet Activity: resume usual activities as tolerated Exam - Constitutional General appearance: no acute distress - Head Head exam: Present: normal inspection - Neck Neck exam: Present: normal inspection - Respiratory Respiratory exam: Present: clear to auscultation bilaterally - Cardiovascular Cardiovascular exam: Present: regular rate and rhythm - GI/Abdominal GI/Abdominal exam: Present: normal bowel sounds - Extremities Exam Extremities exam: Present: normal inspection
[2017-04-13 11:43] VITALS: BP 131/82
--- NOTE | 2017-04-14 12:40 | Pathology Report from [facility] ---
[facility] ACCESSION # : [id number] PATIENT NAME : Deb Corona ORDERING DR : Gallo Bobby MD CLINICAL HX: Colitis - Positive stools POST-OP DX: #1 Colon polyps #2 ? Ischemic colitis #3 Colon polyps SPECIMEN INFO: #1 Ascending colon polyp #2 Descending/sigmoid biopsy #3 Rectal polyps GROSS DESCRIPTION: #1 Received in formalin labeled with the patients name DEB CORONA and #1 consists of a 0.6 x 0.4 cm aggregate of brice tissue. Submitted in cassette #1.#2 Received in formalin labeled with the patients name DEB CORONA and #2 consists of a 0.6 x 0.5 cm aggregate of brice tissue. Submitted in cassette #2.#3 Received in formalin labeled with the patients name DEB CORONA and #3 consists of a 0.7 x 0.3 cm aggregate of brice tissue. Submitted in cassette #3. DIAGNOSIS FOR DEB CORONA: #1 ASCENDING COLON BIOPSIES: Tubular adenoma.# 2 DESCENDING & SIGMOID COLON BIOPSIES: Focal superficial acute inflammation c/w acute self-limited vs diverticular associated colitis. Changes of ischemic colitis not present.#3 RECTAL BIOPSIES: Hyperplastic polyps. COLLECTED DATE: 04/13/2017 [facility] REPORT DATE: 04/14/2017 ELECTRONICALLY SIGNED BY: Adolfo Zaidi M.D. 04/14/2017 - 9:20:04 DAHIANA
== END 2017-04-13 14:55 | disposition home or self-care (01) | DRG 246 ==
LOC: EDBD → EDUNIT# → N.ED 02:39 → N.EDINP 05:12 → SUATTDRO 05:12 → N.2E 05:46
PROVIDERS: ADMIT Internal Medicine; ATTEND Internal Medicine